=== PATIENT | female | born 1965 | race Caucasian/White ===

== ENCOUNTER 2021-06-16 16:35 | Emergency (ER) | payer OTHER ==
[2021-06-16] MEDS ORDERED: BAMLANIVIMAB (EUA) 700 MG, ETESEVIMAB (EUA) 1,400 MG in SODIUM CHLORIDE 0.9% 50 ML IVPB ONE (20:15)
[2021-06-16] MEDS ORDERED: SODIUM CHLORIDE 0.9% 50 ML IVPB ONE (20:15)
--- NOTE | 2021-06-16 20:25 | ED ---
General Adult HPI - General Chief complaint: Upper Respiratory Infection Stated complaint: Infusion Time Seen by Provider: 06/16/21 18:07 Source: patient Mode of arrival: ambulatory Limitations: no limitations - History of Present Illness Initial comments: He 5-year-old female with past medical history of asthma presents emergency department with reported Covid symptoms. She does present with her . She has had 6 days worth of head cold, cough, congestion. She followed up with her primary care doctor in office today and was tested for Covid which came back positive. She was placed on steroids and antibiotics. They did write her prescription to get antibody infusion. Patient denies any chest pain. No significant shortness of breath. Admits to fevers. Has mild nausea. No other alleviating, Perceptin or modifying factors - Related Data Previous Rx's Medication Instructions Recorded Ondansetron Odt [Zofran Odt] 4 mg PO Q8HR PRN #15 tab 06/16/21 Allergies Allergy/AdvReac Type Severity Reaction Status Date / Time No Known Allergies Allergy Verified 06/16/21 17:01 Review of Systems ROS Statement: Those systems with pertinent positive or pertinent negative responses have been documented in the HPI. ROS Other: All systems not noted in ROS Statement are negative. Past Medical History Past Medical History: Asthma History of Any Multi-Drug Resistant Organisms: None Reported Past Surgical History: Tubal Ligation Past Psychological History: No Psychological Hx Reported Smoking Status: Former smoker Past Alcohol Use History: None Reported Past Drug Use History: None Reported General Exam Limitations: no limitations General appearance: alert, in no apparent distress Head exam: Present: atraumatic, normocephalic, normal inspection Eye exam: Present: normal appearance, PERRL, EOMI. Absent: scleral icterus, conjunctival injection, periorbital swelling ENT exam: Present: normal exam, mucous membranes moist Neck exam: Present: normal inspection. Absent: tenderness, meningismus, lymphadenopathy Respiratory exam: Present: normal lung sounds bilaterally. Absent: respiratory distress, wheezes, rales, rhonchi, stridor Cardiovascular Exam: Present: regular rate, normal rhythm, normal heart sounds. Absent: systolic murmur, diastolic murmur, rubs, gallop, clicks GI/Abdominal exam: Present: soft, normal bowel sounds. Absent: distended, te nderness, guarding, rebound, rigid Extremities exam: Present: normal inspection, full ROM, normal capillary refill. Absent: tenderness, pedal edema, joint swelling, calf tenderness Back exam: Present: normal inspection Neurological exam: Present: alert, oriented X3, CN II-XII intact Psychiatric exam: Present: normal affect, normal mood Skin exam: Present: warm, dry, intact, normal color. Absent: rash Course Vital Signs 06/16/21 06/16/21 16:57 22:49 Temperature 100.6 F H 98.7 F Pulse Rate 72 68 Respiratory 18 20 Rate Blood Pressure 129/70 119/63 O2 Sat by Pulse 99 98 Oximetry Medical Decision Making - Medical Decision Making Upon arrival the patient is placed into room 23. There are history and physical exam was performed. Patient did receive antibody infusion. She will be given a Zofran starter pack and additional Zofran called and pharmacy. She is instructed to take the medications that were prescribed by her primary care doctor. Follow-up for reevaluation. Return for any new or worsening symptoms. Patient was discharged home in stable condition Disposition Clinical Impression: COVID-19 Disposition: HOME SELF-CARE Condition: Stable Instructions (If sedation given, give patient instructions): Coronavirus D isease 2019 (COVID-19) Additional Instructions: Please follow-up with your primary care doctor in 2-4 days. Return to the emergency room for any new or worsening symptoms Prescriptions: Ondansetron Odt [Zofran Odt] 4 mg PO Q8HR PRN #15 tab PRN Reason: Nausea Is patient prescribed a controlled substance at d/c from ED?: No Referrals: Stephen Taylor MD [Primary Care Provider] - 1-2 days Time of Disposition: 20:25
[2021-06-16] MEDS ORDERED: ONDANSETRON 4 MG ODT STARTER PACK 2 TAB BTL PO STA (21:09)
[2021-06-16 22:52] VITALS: BP 119/63; PULSE 68; RESP 20; TEMP 98.7
== END 2021-06-16 22:51 | disposition home or self-care (01) ==
LOC: EC 16:35
DX: U07.1 COVID-19 (principal); J45.909 Unspecified asthma, uncomplicated; Z98.51 Tubal ligation status; Z87.891 Personal history of nicotine dependence
CPT/HCPCS: 99283; S0119; J3490